=== PATIENT | female | born 1960 | race Caucasian/White ===

== ENCOUNTER 2022-11-07 07:20 | Day surgery (SDC) | payer OTHER ==
[~2022-11-07] VITALS: Ht 152.4 cm; Wt 71.2 kg
[2022-11-07] MEDS ORDERED: MIDAZOLAM 5 MG/5 ML VIAL ONE (08:27)
[2022-11-07] MEDS ORDERED: diphenhydrAMINE 50 MG/ML VIAL ONE (08:27)
[2022-11-07] MEDS ORDERED: fentaNYL citrate 0.05 MG/ML VIAL ONE ×2 (08:27)
[2022-11-07] MEDS ORDERED: fentaNYL citrate 0.05 MG/ML VIAL IVP ONE (08:50)
[2022-11-07] MEDS ORDERED: MIDAZOLAM 5 MG/5 ML VIAL IV ONE (08:50)
== END 2022-11-07 09:50 | disposition home or self-care (01) ==
LOC: MOR 07:20 → MMU 07:20 → MOR 09:50
PROVIDERS: ATTEND Internal Medicine Gastroenterology
DX: K21.9 Gastro-esophageal reflux disease without esophagitis (principal); K29.70 Gastritis, unspecified, without bleeding; K30 Functional dyspepsia; E66.09 Other obesity due to excess calories; Z87.11 Personal history of peptic ulcer disease; E78.00 Pure hypercholesterolemia, unspecified; Z90.49 Acquired absence of other specified parts of digestive tract; Z68.30 Body mass index [BMI] 30.0-30.9, adult; Z20.822 Contact with and (suspected) exposure to COVID-19
CPT/HCPCS: J1200; J2250; J3010